=== PATIENT | female | born 1985 | race Caucasian/White ===

== ENCOUNTER 2019-04-16 11:06 | Emergency (ER) | payer OTHER ==
[~2019-04-16] VITALS: Ht 170.2 cm; Wt 69.4 kg
[2019-04-16] MEDS ORDERED: PRENATAL 19 TA1 EACH PO (11:40)
== END 2019-04-16 15:56 | disposition home or self-care (01) ==
LOC: ER 11:06
DX: O20.0 Threatened abortion (principal)

== ENCOUNTER 2019-04-28 11:59 | Outpatient (CLI) | payer OTHER ==
[~2019-04-28 11:59] MED LIST: PRENATAL 19 TA1 EACH PO
== END 2019-04-28 13:00 | disposition home or self-care (01) ==
LOC: PRENATAL 11:59
DX: O26.851 Spotting complicating pregnancy, first trimester (principal)

== ENCOUNTER 2019-05-23 15:23 | Inpatient (IN) | payer OTHER ==
[~2019-05-23] VITALS: Ht 170.2 cm; Wt 66.7 kg
[~2019-05-23 15:23] MED LIST changes: -PROGESTERONE200 MG PO
[2019-05-23] MEDS ORDERED: PROGESTERONE200 MG PO (15:51)
== END 2019-05-25 17:16 | disposition home or self-care (01) | DRG 770 ==
LOC: OB/GYN 15:23 → LDR 15:23 → OB/GYN 05-24 21:20
PROVIDERS: ADMIT Obstetrics & Gynecology
PROC: 10D17ZZ Extraction of Products of Conception, Retained, Via Natural or Artificial Opening (ICD-10-PCS; principal; 2019-05-23)
PROC: 3E0P7VZ Introduction of Hormone into Female Reproductive, Via Natural or Artificial Opening (ICD-10-PCS; 2019-05-23)
DX: O03.4 Incomplete spontaneous abortion without complication (principal); O02.1 Missed abortion

== ENCOUNTER → 2019-05-23 | Outpatient (CLI) | payer OTHER ==
[~2019-05-23] MED LIST changes: +PROGESTERONE200 MG PO
== END | disposition home or self-care (01) ==
LOC: PRENATAL 13:00
DX: O41.02X0 Oligohydramnios, second trimester, not applicable or unspecified (principal); O26.852 Spotting complicating pregnancy, second trimester

== ENCOUNTER 2020-08-14 08:36 | Outpatient (CLI) | payer OTHER ==
[~2020-08-14 08:36] MED LIST changes: +PROGESTERONE200 MG PO
== END 2020-08-14 15:34 | disposition home or self-care (01) ==
LOC: OBS/DEL 08:36
PROVIDERS: ATTEND Obstetrics & Gynecology
DX: O16.3 Unspecified maternal hypertension, third trimester (principal)

== ENCOUNTER 2020-08-20 15:15 | Inpatient (IN) | payer OTHER ==
[~2020-08-20] VITALS: Ht 170.2 cm; Wt 3.6 kg
[2020-08-23] MEDS ORDERED: ASPIRIN81 MG PO (17:41)
== END 2020-08-26 11:00 | disposition home or self-care (01) | DRG 788 ==
LOC: LDR 08-23 17:16 → O/R 08-24 13:07 → OB/GYN 08-24 14:18
PROVIDERS: ADMIT Obstetrics & Gynecology; ATTEND Obstetrics & Gynecology
PROC: 4A1HXFZ Monitoring of Products of Conception, Cardiac Rhythm, External Approach (ICD-10-PCS; 2020-08-23)
PROC: 3E033VJ Introduction of Other Hormone into Peripheral Vein, Percutaneous Approach (ICD-10-PCS; 2020-08-23)
PROC: 10D00Z1 Extraction of Products of Conception, Low, Open Approach (ICD-10-PCS; principal; 2020-08-24 10:00)
DX: O62.1 Secondary uterine inertia (principal); O99.824 Streptococcus B carrier state complicating childbirth; Z3A.38 38 weeks gestation of pregnancy; Z37.0 Single live birth; Z20.828 Contact with and (suspected) exposure to other viral communicable diseases

== ENCOUNTER 2020-08-23 06:50 | Outpatient (CLI) | payer OTHER ==
[2020-08-23] MEDS ORDERED: ASPIRIN81 MG PO (17:41)
== END 2020-08-23 10:19 | disposition still patient (30) ==
LOC: OBS/DEL 06:50
PROVIDERS: ATTEND Obstetrics & Gynecology
DX: O47.1 False labor at or after 37 completed weeks of gestation (principal); Z20.828 Contact with and (suspected) exposure to other viral communicable diseases